=== PATIENT | female | born 1960 | race Asian ===

== ENCOUNTER 2017-04-03 19:40 | Emergency (ER) | payer OTHER ==
[~2017-04-03] VITALS: Ht 162.6 cm; Wt 54.4 kg
--- NOTE | 2017-04-03 19:48 | NUR ---
PT AMBULATORY TO ER BED 6. PT BIB FAMILY C/O ALL OVER BODY PAIN X 1 DAY. PT HAS HX OF RA. 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 VSS/RESP EVEN UNLABORED/NAD NOTED/SKIN WARM AND DRY/DENIES N-V-D/AFEBRILE/AOX4. AWAITING MD ISRAEL.
--- NOTE | 2017-04-03 19:50 | NUR ---
EMT AT BEDSIDE FOR EKG
--- NOTE | 2017-04-03 19:55 | NUR ---
XRAY AT BEDSIDE
[2017-04-03] MEDS ORDERED: ONDANSETRON HCL/PF 4 MG/2 ML VIAL IVP ONE (20:00)
[2017-04-03] MEDS ORDERED: IV NS 0.9% 1,000 ML BAG IV ONE (20:00)
[2017-04-03] MEDS ORDERED: LORAZEPAM INJ 2 MG/ML VIAL IV ONE (20:00)
--- NOTE | 2017-04-03 20:10 | NUR ---
20G IV X 1 ATTEMPT TO L AC USING ASEPTIC TECH, BLOOD HANDED OVER TO THE LAB AT THE BEDSIDE. IV FLUSHES EASILY WITH NS, NO S/S INFILTRATION.
[2017-04-03] MEDS ORDERED: ONDANSETRON HCL/PF 4 MG/2 ML VIAL ONE (20:11)
[2017-04-03] MEDS ORDERED: LORAZEPAM INJ 2 MG/ML VIAL ONE (20:12)
[2017-04-03 20:22] LABS: BASOPHILS # (AUTO) 0.1 /CMM (0.0-0.2); BASOPHILS % (AUTO) 0.8 % (0.0-2.0); EOSINOPHILS # (AUTO) 0.1 /CMM (0.0-0.7); EOSINOPHILS % (AUTO) 1.6 % (0.0-6.0); HEMATOCRIT 44 % (33-45); HEMOGLOBIN 15.4 g/dL (11.5-14.8); LYMPHOCYTES # (AUTO) 1.1 /CMM (0.8-4.8); MEAN CORPUSCULAR HEMOGLOBIN 30 PG (26.0-33.0); MEAN CORPUSCULAR HGB CONC 35 g/dl (31.0-36.0); MEAN CORPUSCULAR VOLUME 85 fL (82-100); MONOCYTES # (AUTO) 0.5 /CMM (0.1-1.30); MONOCYTES % (AUTO) 5.4 % (2.0-12.0); NEUTROPHILS # (AUTO) 6.6 /CMM (1.8-8.9); NEUTROPHILS % (AUTO) 79.2 % (43.0-81.0); PLATELET COUNT (AUTO) 179 /CMM (150-450); RDW COEFFICIENT OF VARIATION 12.4 (11.5-15.0); RED BLOOD CELL COUNT(AUTO) 5.12 MIL/uL (4.0-5.2); WHITE BLOOD COUNT (AUTO) 8.4 K/uL (4.3-11.0)
[2017-04-03 20:26] LABS: CALCIUM, SERUM 9.2 mg/dL (8.5-10.1); CARBON DIOXIDE 27 mmol/L (21-32); CHLORIDE 105 mmol/L (98-107); CREATININE 0.7 mg/dL (0.6-1.3); GLUCOSE 120 mg/dL (74-106); POTASSIUM 3.7 mmol/L (3.5-5.1); SODIUM SERUM 138 mmol/L (136-145); UREA NITROGEN, BLOOD 10 mg/dL (7-18)
[2017-04-03] MEDS ORDERED: IOHEXOL-350 100 ML VIAL IV ONE (20:26)
[2017-04-03] MEDS ORDERED: IV NS 0.9% 500 ML IV ONE (20:26)
[2017-04-03] MEDS ORDERED: CT SWABBABLE VALVE TRANS SET 1 EA INFUS.SET MC ONE (20:26)
[2017-04-03 20:30] LABS: INR 0.89 (0.85-1.15)
[2017-04-03 20:32] LABS: ALANINE AMINOTRANSFERASE 20 U/L (12-78); ALKALINE PHOSPHATASE 78 U/L (46-116); ASPARTATE AMINOTRANSFERASE 16 U/L (15-37); BILIRUBIN,DIRECT 0.1 mg/dL (0.0-0.2); BILIRUBIN,TOTAL 0.7 mg/dL (0.2-1.0)
[2017-04-03 20:34] LABS: TROPONIN I < 0.017 ng/mL (0.00-0.056)
--- NOTE | 2017-04-03 20:38 | NUR ---
PT TO CT VIA STRETCHER. VSS.
[2017-04-03] MEDS ORDERED: DEXAMETHASONE SOD PHOSPHATE 10 MG/ML VIAL ONE (21:41)
[2017-04-03] MEDS ORDERED: DEXAMETHASONE SOD PHOSPHATE 10 MG/ML VIAL IV ONE (22:00)
--- NOTE | 2017-04-03 22:06 | NUR ---
IV removed. Catheter intact and site benign. Pressure and 4x4 applied to site. No bleeding noted. Patient discharged with family to home in stable condition. Written and verbal after care instructions given. Patient verbalizes understanding of instruction. Patient ambulatory with a steady gait.
[2017-04-03 22:07] VITALS: BP 114/66
== END 2017-04-03 22:08 | disposition home or self-care (01) ==
LOC: ER 19:43
DX: R06.02 Shortness of breath (principal); F41.9 Anxiety disorder, unspecified; G56.00 Carpal tunnel syndrome, unspecified upper limb; I10 Essential (primary) hypertension; M06.9 Rheumatoid arthritis, unspecified
CPT/HCPCS: 36415; 71045-TC; 80048-TC; 80076-TC; 83880; 84484-TC; 85025-TC; 85730-TC; A4606; J2060; J2405; J7030; J7040; Q9967; Z7610